=== PATIENT | male | born 2000 | race Caucasian/White ===

== ENCOUNTER 2020-09-12 10:16 | Emergency (ER) | payer BC, SELFPAY ==
[2020-09-12 10:29] VITALS: BP 126/79; PULSE 52; RESP 14; TEMP 36.4; O2SAT 100
--- NOTE | 2020-09-12 10:52 | ED.URI ---
HPI - URI/Sore Throat General Chief Complaint: Upper Respiratory Infection Stated Complaint: pain jaw and down throat Time Seen by Provider: 09/12/20 11:05 Source: patient History of Present Illness HPI Narrative: Patient presents with sore throat and pain on the right side of his lower jaw. Patient denies any trouble swallowing no drooling. Patient states the pain started last night while he was at work. Patient denies any fever no cough no runny nose no nasal congestion. Related Data Allergies Allergy/AdvReac Type Severity Reaction Status Date / Time No Known Allergies Allergy Verified 09/12/20 10:49 Review of Systems Review of Systems: Narrative: CONSTITUTIONAL: Denies fever, chills, or sweats. EYES: Denies visual changes, redness, or discharge. ENT: Denies rhinorrhea, congestion, sore throat, or otalgia. NO FEVER. NO JAW SWELLING. NO NECK SWELLING. NO LIMITATION WITH SPEAKING OR SWALLOWING. HAS A HISTORY OF DENTAL CARIES. HAS NOT SEEN A DENTIST RECENTLY. CARDIOVASCULAR: Denies chest pain, palpitations, or edema. RESPIRATORY: Denies cough or dyspnea. GASTROINTESTINAL: Denies abdominal pain, nausea, vomiting, or diarrhea. GENITOURINARY: Denies dysuria or hematuria. SKIN: Denies rash or itching. MUSCULOSKELETAL: Denies back pain, joint pain, or myalgia. NEUROLOGIC: Denies headache, numbness, or weakness. PSYCHIATRIC: Denies anxiety or depression. PMFSH Comments At time of signature, agree with nursing past medical, surgical, social and family history. There is no relevant family history pertinent to the presenting complaint Exam Narrative: Exam Narrative: GENERAL: Well-appearing, well-nourished, and in no acute distress. HEAD: Normocephalic, atraumatic. EYES: PERRLA and EOMI. ENT: Nares clear, no rhinorrhea or epistaxis. Mucous membranes moist. NO CLAIR APICAL SWELLING, TOOTH TENDER TO PALPATION. NO FACIAL SWELLING. NO TRISMUS. ABLE TO OPEN MOUTH FULLY. NO NECK SWELLING OR NUHA'S ANGINA. NO ABSCESS TO BE DRAINED. no drooling, trismus, facial asymmetry or significant neck swelling NECK: Supple. CHEST: Clear to auscultation. No respiratory distress. HEART: Regular rate and rhythm. No murmur heard. Normal peripheral pulses. ABDOMEN: Soft, nontender, nondistended, normal active bowel sounds. EXTREMITIES: Normal range of motion. No edema. SKIN: Warm, dry, no rash. NEURO: No focal deficits. Alert and oriented x3. Weldon Coma Scale Eye Opening: Spontaneous 4 Weldon Coma Scale Motor: Obeys Commands 6 Mary Coma Scale Verbal: Oriented 5 Mary Coma Scale Total 15 HENMT: Teeth image: 1. SWOLLEN WISDOM TOOTH ERUPTION Course Vital Signs Vital signs: Vital Signs Temperature 36.4 C L 09/12/20 10:29 Pulse Rate 52 L 09/12/20 10:29 Respiratory Rate 14 09/12/20 10:29 Blood Pressure 126/79 09/12/20 10:29 Pulse Oximetry 100 09/12/20 10:29 Temperature 36.4 C L 09/12/20 10:29 Pulse Rate 52 L 09/12/20 10:29 Respiratory Rate 14 09/12/20 10:29 Blood Pressure 126/79 09/12/20 10:29 Pulse Oximetry 100 09/12/20 10:29 MDM - URI/Sore Throat Lab Data Labs: Strep Screen Presumptive Negative *(Reference Range: Negative)* Discharge Plan Discharge Clinical Impression: Tooth ache Patient Disposition: Home, Self-Care Condition: Stable Instructions: Antibiotic Form, Toothache (ED) Additional Instructions: Avoid temperature extremes May apply heat or ice to the face Gentle brushing and flossing Antibiotic as directed Tylenol for lesser pain Use ibuprofen regularly Follow-up with the dentist as soon as possible--see the list provided -If you have any worsening of symptoms or any other concerns please go to the ED immediately. Prescriptions: New Lidocaine Viscous 2 % solution 1 applic mucous membrane BID PRN (Reason: pain) 3 Days Qty: 15 RF: 0 penicillin V potassium 500 mg tablet 500 mg PO Q8H 10 Days Qt
== END 2020-09-12 11:05 | disposition home or self-care (01) ==
PROVIDERS: Emergency Provider Nurse Practitioner Family
DX: K08.89 Other specified disorders of teeth and supporting structures (principal)
CPT/HCPCS: 87081; 87880; 99213; G0463